=== PATIENT | female | born 1975 | race Caucasian/White ===

== ENCOUNTER 2021-11-27 19:14 | Emergency (ER) | payer BC, OTHER ==
[2021-11-27] MEDS ORDERED: Ondansetron PF 4 MG/2 ML Vial ONE (20:22)
[2021-11-27] MEDS ORDERED: Ketorolac Tromethamine 30 MG/ML VIAL ONE (20:22)
[2021-11-27 20:33] LABS: #Basophils 0.1 10x3/uL (0.0-0.2); #Eosinphils 0.2 10x3/uL (0.0-0.5); #Monocytes 0.6 10x3/uL (0.0-1.1); #Neutrophils 5.7 10x3/uL (1.5-8.4); %Basophils 0.8 % (0.0-2.0); %Eosinophils 2.1 % (0.0-6.0); %Lymphocytes 25.5 % (18.0-47.0); %Monocytes 6.8 % (0.0-10.0); %Neutrophils 63.9 % (40.0-75.0); Hemoglobin 13.7 g/dL (12.0-15.5); Mean Corpuscular HGB CONC 33.8 g/dL (32.0-36.0); Mean Corpuscular Hemoglobin 31.9 pg (27.0-33.0); Mean Corpuscular Volume 94.2 fl (81.6-98.3); Mean Platelet Volume 9.4 fl (7.4-10.4); Platelet Count 287 10x3/uL (150-450); RBC Distribution Width 12.5 % (11.5-14.5); White Blood Cell (WBC) Count 8.9 10x3/uL (3.5-10.5)
[2021-11-27 20:42] LABS: ALT (SGPT) 7 U/L (8-55); AST (SGOT) 14 U/L (5-34); Albumin 4.4 g/dL (3.5-5.0); Alkaline Phosphatase 83 U/L (40-110); Anion Gap 11 mmol/L (10-20); BUN (Urea Nitrogen) 14 mg/dL (7.0-18.7); Bilirubin, Total 0.9 mg/dL (0.2-1.2); Calc. Creatinine Clearance 0 mL/min (70-130); Calcium 9.1 mg/dL (7.8-10.44); Carbon Dioxide 24 mmol/L (22-29); Chloride 109 mmol/L (98-107); Glucose 99 mg/dL (70-105); Lipase 30 U/L (8-78); Magnesium 2.1 mg/dL (1.6-2.6); Protein, Total 7.4 g/dL (6.0-8.3); Sodium 140 mmol/L (136-145)
[2021-11-27 21:04] LABS: Bilirubin Neg (Negative); Blood, Urine Negative (Negative); Clarity Clear (Clear); Glucose, Urine (Dipstick) Normal (Negative); Ketone, Urine Negative (Negative); Leukocyte Negative (Negative); Nitrite Negative (Negative); Protein, Urine (Dipstick) Negative (Neg-Trace); Urobilinogen Normal mg/dL (Less than 2)
[2021-11-27] MEDS ORDERED: Morphine 4 MG/ML VIAL ONE (22:26)
== END 2021-11-27 23:39 | disposition home or self-care (01) ==
LOC: CSHERS 19:14
DX: K80.20 Calculus of gallbladder without cholecystitis without obstruction (principal); E78.5 Hyperlipidemia, unspecified
CPT/HCPCS: 76705; 80053; 81003; 83690; 83735; 85025; 96374; 96375; J1885; J2270; J2405

== ENCOUNTER 2021-12-03 11:37 | Outpatient (CLI) | payer BC ==
[2021-12-04 14:44] LABS: SARS-CoV-2 PCR by NAA Not Detected (NotDetected)
== END 2021-12-03 11:38 | disposition home or self-care (01) ==
LOC: CSHLAB 11:37
PROVIDERS: ATTEND Surgery
DX: Z20.822 Contact with and (suspected) exposure to COVID-19 (principal)
CPT/HCPCS: U0003; U0005

== ENCOUNTER → 2021-12-06 | Day surgery (SDC) | payer BC ==
[2021-12-04 09:59] VITALS: BMI 31.0
[~2021-12-06] MED LIST: Bupivacaine PF 0.5% 30 ML VIAL ONE; Dexamethasone 20 MG/5 ML VIAL ONE; Fentanyl 100 MCG/2 ML VIAL ONE; Glycopyrrolate 0.2 MG/ML 5 ML SYRINGE ONE; Lidocaine 1% MPF 2 ML VIAL ONE; Midazolam HCl 2 mg/2 ml Vial ONE; Promethazine HCl 25 MG/ML VIAL ONE; ceFAZolin 2 GM/Dextrose 50 ML IVPB ONE; traMADol HCl 50 MG TAB ONE; traMADol HCl 50 MG TAB PO PRN
== END | disposition home or self-care (01) ==
LOC: CSHSDC 09:54
PROVIDERS: ATTEND Surgery
PROC: 0FT44ZZ Resection of Gallbladder, Percutaneous Endoscopic Approach (ICD-10-PCS; principal; 2021-12-06)
DX: K81.1 Chronic cholecystitis (principal); E78.00 Pure hypercholesterolemia, unspecified; Z79.899 Other long term (current) drug therapy
CPT/HCPCS: 88304; C1776; J0690; J1100; J2250; J2550; J3010; S0020